=== PATIENT | female | born 2005 | race Caucasian/White ===

== ENCOUNTER 2023-12-25 15:33 | Emergency (ER) | payer BC ==
[~2023-12-25] VITALS: Ht 152.4 cm; Wt 55.0 kg
[2023-12-25 15:45] VITALS: BP 128/91; PULSE 72; TEMP 98.3; O2SAT 99
[2023-12-25 16:18] LABS: BILIRUBIN,URINE NEGATIVE (Neg); CLARITY,URINE CLOUDY (Clear); COLOR,URINE RED (Yellow); GLUCOSE, URINE NEGATIVE (Neg); KETONES,URINE >=80 mg/dl (Neg); LEUKOCYTE ESTERASE ,URINE TRACE (Neg); NITRITES, URINE POSITIVE (Neg); OCCULT BLOOD,URINE LARGE (Neg); PH,URINE 6.5 (4.8-8.0); PROTEIN,URINE 100 mg/dl (Neg)
[2023-12-25 16:21] LABS: UA COLLECTION TYPE CLN CATCH MIDSTREAM; URINE HCG NEGATIVE (NEG)
[2023-12-25 16:22] LABS: BACTERIA,URINE FEW /HPF (Neg); MUCUS STRANDS FEW /LPF (Neg); RBC,URINE TNTC /HPF (0-2); SQUAMOUS EPITHELIAL CELL,UR MODERATE /LPF (FEW)
[2023-12-25] MEDS ORDERED: NITR100C6 PO (16:33)
[2023-12-25] MEDS ORDERED: PHEN-824 PO (16:33)
[2023-12-25 16:41] VITALS: RESP 16
== END 2023-12-25 16:43 | disposition home or self-care (01) ==
LOC: ER 15:34
DX: N39.0 Urinary tract infection, site not specified (principal)
CPT/HCPCS: 81001; 81025; 87088; 99283